=== PATIENT | female | born 1965 | race Caucasian/White ===

== ENCOUNTER 2023-06-16 06:26 | Outpatient (CLI) | payer BC, SELFPAY ==
[2023-06-16 06:43] VITALS: BP 106/66; PULSE 50; RESP 16; O2SAT 97
--- NOTE | 2023-06-16 07:53 | P.ORPRC_ITS ---
Procedure Note Date of procedure: 06/16/23 Procedure: PREPROCEDURE DIAGNOSIS: 1. Left medial elbow epicondylitis, recalcitrant to nonoperative management POSTPROCEDURE DIAGNOSIS: 1. Left medial elbow epicondylitis, recalcitrant to nonoperative management PROCEDURE: 1. Percutaneous tenotomy flexor pronator origin at the left medial distal humeral epicondyle using ultrasound guidance to cut and remove the patient?s pathologic tissue, tendon or fascia. SURGEON: Jose Krueger MD [employer]EN[employer] TEACHER: None ANESTHESIA: Local (1% lidocaine with epi) -12 mL utilized in total COMPLICATIONS: None INDICATIONS FOR PROCEDURE: The patient presents with left medial elbow pain that is failed nonoperative management including physical therapy, activity modification, oral NSAIDs, ice, multiple cortisone injections, etc. Given these findings, surgery was recommended for percutaneous tenotomy of the distal medial humeral epicondyle. DESCRIPTION OF PROCEDURE: A sterile sleeve was placed over the ultrasound transducer, the anatomy was identified and the diseased tissue was visualized/confirmed at the origin of the flexor pronator mass. The area was prepped with sterile ChloraPrep solution. Then, the area was injected with 1% lidocaine with epinephrine 12ml, using a 25 gauge needle. Once the skin wheal was placed in the involved tissue anesthetized, an #11 blade was used to incise through the skin wheal, and superficial fascia. This was all targeted towards the patient's described location of maximal tenderness (by anatomy, the pronator teres and FCR origins). To section the disease tendon, the Tenex surgical instrument was introduced through the incision, and advanced to the disease tendon which was discovered to be hypoechoic with the ultrasound. Once the tip of the instrument was confirmed to be within the pathologic tissue, the foot pedal was depressed and the tendon was incised along its length cutting and removing the disease tendon tissue. 1 min 18 sec of cutting time was utilized. Following the procedure, Steri-Strips were placed, a small gauze and Tegaderm were placed, and the patient was awoken from anesthesia and transferred to the recovery room in stable condition. PLAN: Gentle use of the operative extremity as tolerated. Refrain from excessive activities including yard projects or extensive shopping. Tylenol for pain as needed. Ice is encouraged. Follow up with me in 1-2 weeks for wound check.
== END 2023-06-16 07:25 | disposition home or self-care (01) ==
PROVIDERS: PCP Family Medicine; Visit Provider Orthopaedic Surgery Sports Medicine
DX: M77.02 Medial epicondylitis, left elbow (principal)
CPT/HCPCS: 24357; 76942

== ENCOUNTER 2023-08-04 08:14 | Outpatient (CLI) | payer BC, SELFPAY | END 2023-08-04 08:15 | disposition home or self-care (01) | LOC: NFLDREF 08-06 19:48 | PROVIDERS: PCP Family Medicine; Referring Provider Family Medicine; Visit Provider Family Medicine | DX: Z00.00 Encounter for general adult medical examination without abnormal findings (principal); R79.89 Other specified abnormal findings of blood chemistry; Z13.6 Encounter for screening for cardiovascular disorders | CPT/HCPCS: 80053; 80061 ==

== ENCOUNTER 2023-08-22 07:30 | Outpatient (RCR) | payer BC, SELFPAY | END 2023-12-20 23:59 | disposition home or self-care (01) | PROVIDERS: PCP Family Medicine; Visit Provider Family Medicine | DX: M79.644 Pain in right finger(s) (principal); M77.11 Lateral epicondylitis, right elbow; Z51.89 Encounter for other specified aftercare | CPT/HCPCS: 97033; 97035; 97110; 97140; 97166; X5282 ==

== ENCOUNTER 2023-10-10 07:47 | Outpatient (CLI) | payer BC, SELFPAY | END 2023-10-10 07:48 | disposition home or self-care (01) | LOC: NFLDREF 14:21 | PROVIDERS: PCP Family Medicine; Referring Provider Family Medicine; Visit Provider Family Medicine | DX: R79.89 Other specified abnormal findings of blood chemistry (principal); Z53.20 Procedure and treatment not carried out because of patient's decision for unspecified reasons | CPT/HCPCS: 80076; 86704 ==

== ENCOUNTER 2024-02-18 12:06 | Outpatient (CLI) | payer BC, SELFPAY ==
--- OUTSIDE RECORDS SUMMARY | 2024-02-18 12:11 | XMS_ITS | Referral Summary ---
Author Name Unknown Organization [facility] Address [address] [place] [address] Care Team Providers Care Correctional Therapy Director Name Role Phone Shakir Wyatt MD Primary Care Provider Allergies Active Allergy Reactions Criticality Noted Date Comments Sulfa Antibiotics Swelling 06/21/2011 Medications Medication Sig Dispensed Refills Start Date End Date Status ADVIL COLD & SINUS LIQUI-GELS 30-200 MG CAPSIndications:Enco unter for medication refill TAKE 2 CAPSULES BY MOUTH DAILY NEEDED 64 capsule 3 07/02/2016 Active multivitamin, therapeutic with minerals (MULTI-VITAMIN) TABS tablet Take 1 tablet by mouth daily 100 tablet 3 01/15/2017 Active scopolamine (TRANSDERM) 72 hr patchIndications:Sea sickness Apply 1 patch to hairless area behind one ear at least 4 hours before travel. Remove old patch and change every 3 days (72 hours). 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 yes Health Long-Term 06/08/2013 ADD (attention deficit disorder) 04/08/2012 Immunizations Name Administration Dates Next Due HEPA 02/12/2008,08/20/2006 HepB 08/20/2006,10/23/2005,08/21/2001 Influenza (IIV3) PF 08/25/2012 Influenza Vaccine, 6+MO IM ( QUADRIVALENT W/PRESERVATIVES) 09/09/2015 MMR 10/21/2001 TD,PF 7+ (Tenivac) 09/20/2003 TDAP Vaccine (Boostrix) 12/30/2014 Social History Tobacco Use Types Packs/Day Years Used Date Smoking Tobacco: Never Smokeless Tobacco: Never Tobacco Cessation:Counseling Given: No Alcohol Use Standard Drinks/Week Comments Yes 0 (1 standard drink = 0.6 oz pur e alcohol) 2-3 PHQ-2 Answer Date Recorded PHQ-2 Score 1 11/03/2018 Adolescent Education Answer Date Record ed Getting School Help Needed Not on file 08/03 Sex and Gender Information Value Date Recorded Sex Assigned at Female 01/27/2023 10:56 AM CDT Gender Identity Female 01/27/2023 10:56 AM CDT Sexual Orientation Straight 01/27/2023 10 :56 AM CDT Last Filed Vital Signs Vital Sign Reading Time Taken Comments Blood Pressure 102/70 01/15/2017 8:22 AM CDT Pulse 75 01/15/2017 8:22 AM CDT Temperature 36.7 ??C (98.1 ??F) 01/15/2017 8:22 AM CD T Respiratory Rate - - Oxygen Saturation 98% 01/15/2017 8:22 AM CDT Inhaled Oxygen Concentration - - Weight 76.2 kg (168 lb) 01/15/2017 8:22 AM CDT Height 163.2 cm (5' 4.25) 01/15/2017 8:22 AM CD T Body Mass Index 28.61 01/15/2017 8:22 AM CDT Plan of Treatment Upcoming Encounters Date Type Department Care Team (Late st Contact Info) Description 02/23/2024 9:45 AM CDT Ancillary Procedure [facility] [id number] [place] [phone] Procedures Procedure Name Priority Date/Time Associated Diagnosis Comments MA SCREENING BILATERAL W/ JOHNSON Routine 01/27/2023 11:36 AM CDT Encounter for screening mammogram for malignant neoplasm of breast COLONOSCOPY - [facility] SCAN Routine 01/23/2017 GLUCOSE SERUM ([facility]) Routine 01/15/2017 10:00 AM CDT Screening for diabetes mellitus LIPID PANEL ([facility]) Routine 01/15/2017 10:00 AM CDT Screening for hyperlipidemia from Last 3 Months or Most Recently Relevant to Health Maintenance Results * MA Screen Bilateral w/Johnson (01/27/2023 11:36 AM CDT) Anatomical Region Laterality Modality Breast Bilateral Mammography Impressions 01/28/2023 1:34 PM CDT IMPRESSION: ACR BI-RADS Category 1: Negative RECOMMENDED FOLLOW-UP: Annual routine screening mammogram The results and recommendations of this examination will be communicated to the patient. Pavel Hansen Narrative 01/28/2023 1:34 PM CDT BILATERAL FULL FIELD DIGITAL SCREENING MAMMOGRAM WITH TOMOSYNTHESIS Performed on: 01/27/23 Compared to: 10/10/2021, 10/07/2020, and 07/17/2019 Technique: ??This study was evaluated with the assistance of Computer-Aided Detection. ??Breast Tomosynthesis was used in interpretation. Findings: The breasts are heterogeneously dense, which may obscure small masses. ??There is no radiographic evidence of malignancy. Sydnie Cisse MD IMG MAMMOGRAPHY ORDERABLES * Colonoscopy - HIM Scan (01/23/2017) Shakir Ralph MD PROCEDURES * (ABNORMAL) Lipid Panel ([facility]) (01/15/2017 10:00 AM CDT) Cholesterol 221(H) 100 - 199 mg/dL [facility] 01 Triglycerides 89 0 - 149 mg/dL [facility] 01 HDL Cholesterol 98 >39 mg/dL [facility] 01 VLDL Cholesterol José 18 5 - 40 mg/dL [facility] 01 LDL Cholesterol Calculated 105(H) 0 - 99 mg/dL [facility] 01 LDL/HDL Ratio 1.1 0.0 - 3.2 ratio units [facility] 01 Comment: ?LDL/HDL Ratio ?Men ??Women ?1/2 Avg.Risk ??1.0 ?1.5 ?Avg.Risk ??3.6 ?3.2 ? 2X Avg.Risk ??6.2 ?5.0 ? 3X Avg.Risk ??8.0 ?6.1 Blood specimen (specimen) 01/15/2017 10:00 AM CDT 01/16/2017 Narrative [facility] - 01/16/2017 9:11 AM CDT Performed at: ??01 - [address] ??[id number] Patient Accounting Representative: Anuj Dale MD, Phone: ??[phone] Shakir Ralph MD LAB - [facility] Performing Organization Address City/State/[facility] [[email or web address]] [place] Phone Number [facility] 01 * Glucose Serum ([facility]) (01/15/2017 10:00 AM CDT) Glucose 82 65 - 99 mg/dL [facility] 01 Blood specimen (specimen) 01/15/2017 10:00 AM CDT 01/16/2017 Narrative [facility] - 01/16/2017 9:11 AM CDT Performed at: ??01 - [facility] [id number] [place], [place] ??[id number] Patient Accounting Representative: Anuj Dale MD, Phone: ??[phone] Shakir Ralph MD LAB - [facility] 01 from Last 3 Months or Most Recently Relevant to Health Maintenance Care Teams Correctional Therapy Director Relationship Specialty Start Date End Date Shakir Wyatt MD [facility] [address] [address] PCP - General 02/16/24
--- OUTSIDE RECORDS SUMMARY | 2024-02-18 12:11 | XMS_ITS | Encounter Summary ---
Author Name Unknown Organization [facility] Address [address] [place] [address] Care Team Providers Care Superintendent Operating Name Role Phone Shakir Ralph MD Primary Care Provider UnaShakir Hernandez MD Unavailable Unavailable System, Provider Not In Primary Care Provider Un available No Ref-Primary, Physician Primary Care Provider Shakir Wyatt MD Primary Care Provider Reason for Visit * Reason Comments Medication Refill Encounter Details Date Type Department Care Team (Late st Contact Info) Description 02/07/2015 Refill [facility] [address] [place] [address] Shakir Ralph MD INACTIVE SINCE 09/25/2019 Medication Refill Social History Tobacco Use Types Packs/Day Years Used Date Smoking Tobacco: Never Smokeless Tobacco: Never Alcohol Use Standard Drinks/Week Comments Yes 0 (1 standard drink = 0.6 oz pur e alcohol) none in training Sex and Gender Information Value Date Recorded Sex Assigned at Female 01/27/2023 10:56 AM CDT Gender Identity Female 01/27/2023 10:56 AM CDT Sexual Orientation Straight 01/27/2023 10 :56 AM CDT documented as of this encounter Plan of Treatment Upcoming Encounters Date Type Department Care Team (Late st Contact Info) Description 02/23/2024 9:45 AM CDT Ancillary Procedure [address] [phone] documented as of this encounter Visit Diagnoses Diagnosis Refill clinic medication management patient- Primary documented in this encounter Care Teams Superintendent Operating Relationship Specialty Start Date End Date Shakir Ralph MD PCP - General Family Practice 06/20/11 10/31/19 System, Provider Not In PCP - General Clinic 11/01/19 11/01/19 No Ref-Primary, Physician PCP - General 10/10/21 02/15/24 Shakir Wyatt MD [facility] [address] [address] PCP - General 02/16/24 Shakir Ralph MD INACTIVE [facility]IN[facility] 09/25/2019 Assigned PCP 03/05/15 01/22/20 documented as of this encounter
--- OUTSIDE RECORDS SUMMARY | 2024-02-18 12:11 | XMS_ITS | Encounter Summary ---
Author Name Unknown Organization [facility] Address [address] [place] [address] Care Team Providers Care Communication Spec Name Role Phone Shakir Ralph MD Primary Care Provider UnaShakir Hernandez MD Unavailable Unavailable System, Provider Not In Primary Care Provider Un available No Ref-Primary, Physician Primary Care Provider Shakir Wyatt MD Primary Care Provider [phone] Encounter Details Date Type Department Care Team (Late Contact Info) Description 01/18/2016 [facility] Medical Advice [facility] [address] [place] [address] Anni Rubio Social History Tobacco Use Types Packs/Day Years [...] Encounters Date Type Department Care Team (Late Contact Info) Description 02/23/2024 9:45 AM CDT Ancillary Procedure [facility] [address] [place] [phone] documented as of this encounter Visit Diagnoses Not on filedocumented in this encounter Care Teams Communication Spec Relationship Specialty Start Date End Date Shakir Ralph MD PCP - General Family Practice 06/20/11 10/31/19 System, Provider Not In PCP - General Clinic 11/01/19 11/01/19 No Ref-Primary, Physician PCP - General 10/10/21 02/15/24 Shakir Wyatt MD [facility] [address] [place] [address] PCP - General 02/16/24 Shakir Ralph MD INACTIVE [facility]INCE 09/25/2019 Assigned PCP 03/05/15 01/22/20 documented as of this encounter
--- OUTSIDE RECORDS SUMMARY | 2024-02-18 12:11 | XMS_ITS | Encounter Summary ---
Author Name Unknown Organization [facility] Address [address] [place] [address] Care Team Providers Care Hybrid Tester Name Role Phone Shakir Ralph MD Primary Care Provider UnaShakir Hernandez MD Unavailable Unavailable System, Provider Not In Primary Care Provider Un available No Ref-Primary, Physician Primary Care Provider Shakir Wyatt MD Primary Care Provider Encounter Details Date Type Department Care Team (Late Contact Info) Description 09/04/2015 [facility] Medical Advice [facility] [address] [place] [address] Anni Rubio Social History Tobacco [...] Description 02/23/2024 9:45 AM CDT Ancillary Procedure [facility] [address] [place] [phone] documented as of this encounter Visit Diagnoses Not on filedocumented in this encounter Care Teams Hybrid Tester Relationship Specialty Start Date End Date Shakir Ralph MD PCP - General Family Practice 06/20/11 10/31/19 System, Provider Not In PCP - General Clinic 11/01/19 11/01/19 No Ref-Primary, Physician PCP - General 10/10/21 02/15/24 Shakir Wyatt MD [facility] [address] [place] [address] PCP - General 02/16/24 Shakir Ralph MD INACTIVE [facility]INCE 09/25/2019 Assigned PCP 03/05/15 01/22/20 documented as of this encounter
--- OUTSIDE RECORDS SUMMARY | 2024-02-18 12:11 | XMS_ITS | Encounter Summary ---
Author Name Unknown Organization [facility] Address [address] [place] [address] Care Team Providers Care Wage Adjuster Name Role Phone Shakir Ralph MD Primary Care Provider Shakir Luna MD Unavailable Unavailable System, Provider Not In Primary Care Provider Un available No Ref-Primary, Physician Primary Care Provider Shakir Wyatt MD Primary Care Provider [phone] Reason for Visit * Reason Comments Medication Refill Last OV 10/24/15 Encounter Details Date Type Department Care Team (Late st Contact Info) Description 07/02/[address] [phone] Shakir Ralph MD INACTIVE SINCE 09/25/2019 Medication Refill (Last OV 10/24/15) Social History Tobacco Use Types Packs/Day Years [...] AM CDT documented as of this encounter Miscellaneous Notes * Telephone Encounter - Kavitha Zayas - 07/02/2016 8:45 AM CDT Pending Prescriptions: Disp Refills ADVIL COLD & SINUS LIQUI-GELS 30-200 MG C*64 cap*0 Sig: TAKE 2 CAPSULES BY MOUTH DAILY NEEDED Last OV 10/24/15 CBC 10/24/15 BMP None Lipid 03/02/14 documented in this encounter Plan of Treatment Upcoming Encounters Date Type Department Care Team (Late st Contact Info) Description 02/23/2024 9:45 AM CDT Ancillary Procedure [address] [phone] documented as of this encounter Visit Diagnoses Diagnosis Encounter for medication refill- Primary Issue of repeat prescriptions documented in this encounter Care Teams Wage Adjuster Relationship Specialty Start Date End Date Shakir Ralph MD PCP - General Family Practice 06/20/11 10/31/19 System, Provider Not In PCP - General Clinic 11/01/19 11/01/19 No Ref-Primary, Physician PCP - General 10/10/21 02/15/24 Shakir Wyatt MD [facility] [address] [place] [address] PCP - General 02/16/24 Shakir Ralph MD INACTIVE [facility]INCE 09/25/2019 Assigned PCP 03/05/15 01/22/20 documented as of this encounter
--- OUTSIDE RECORDS SUMMARY | 2024-02-18 12:11 | XMS_ITS | Encounter Summary ---
Author Name Unknown Organization [facility] Address [address] [place] [address] Care Team Providers Care Mold Maker Helper Name Role Phone Shakir Ralph MD Primary Care Provider UnaShakir Hernandez MD Unavailable Unavailable System, Provider Not In Primary Care Provider Un available No Ref-Primary, Physician Primary Care Provider Shakir Wyatt MD Primary Care Provider [phone] Encounter Details Date Type Department Care Team (Late Contact Info) Description 12/24/2016 [facility] Medical Advice [facility] [address] [place] [address] Anni Rubio Social History Tobacco [...] Description 02/23/2024 9:45 AM CDT Ancillary Procedure [facility] [address] [place] [phone] documented as of this encounter Visit Diagnoses Not on filedocumented in this encounter Care Teams Mold Maker Helper Relationship Specialty Start Date End Date Shakir Ralph MD PCP - General Family Practice 06/20/11 10/31/19 System, Provider Not In PCP - General Clinic 11/01/19 11/01/19 No Ref-Primary, Physician PCP - General 10/10/21 02/15/24 Shakir Wyatt MD [facility] [address] [place] [address] PCP - General 02/16/24 Shakir Ralph MD INACTIVE SINCE 09/25/2019 Assigned PCP 03/05/15 01/22/20 documented as of this encounter
--- OUTSIDE RECORDS SUMMARY | 2024-02-18 12:11 | XMS_ITS | Encounter Summary ---
Author Name Unknown Organization [facility] Address [address] [place] [address] Care Team Providers Care Claims Correspondence Clerk Name Role Phone Shakir Ralph MD Primary Care Provider Unava Shakir Mar MD Unavailable Unavailable System, Provider Not In Primary Care Provider Un available No Ref-Primary, Physician Primary Care Provider Shakir Wyatt MD Primary Care Provider [phone] Encounter Details Date Type Department Care Team (Late Contact Info) Description 10/30/2015 [facility] [address] [place] [address] Shakir Ralph MD INACTIVE SINCE 09/25/2019 Social History Tobacco Use Types Packs/Day Years [...] Description 02/23/2024 9:45 AM CDT Ancillary Procedure [facility] [address] [place] [phone] documented as of this encounter Visit Diagnoses Not on filedocumented in this encounter Care Teams Claims Correspondence Clerk Relationship Specialty Start Date End Date Shakir Ralph MD PCP - General Family Practice 06/20/11 10/31/19 System, Provider Not In PCP - General Clinic 11/01/19 11/01/19 No Ref-Primary, Physician PCP - General 10/10/21 02/15/24 Shakir Wyatt MD [facility] [address] [address] PCP - General 02/16/24 Shakir Ralph MD INACTIVE SINCE 09/25/2019 Assigned PCP 03/05/15 01/22/20 documented as of this encounter
--- OUTSIDE RECORDS SUMMARY | 2024-02-18 12:11 | XMS_ITS | Encounter Summary ---
Author Name Unknown Organization [facility] Address [address] [place] [address] Care Team Providers Care Side Seam Envelope Machine Operator Name Role Phone Shakir Ralph MD Primary Care Provider UnaShakir Hernandez MD Unavailable Unavailable System, Provider Not In Primary Care Provider Un available No Ref-Primary, Physician Primary Care Provider Shakir Wyatt MD Primary Care Provider Reason for Visit * Reason Comments Medication Refill Encounter Details Date Type Department Care Team (Late st Contact Info) Description 12/02/2014 Refill [facility] [address] [place] [address] Shakir Ralph MD INACTIVE SINCE [...] Description 02/23/2024 9:45 AM CDT Ancillary Procedure [address] [phone] documented as of this encounter Visit Diagnoses Diagnosis Refill clinic medication management patient- Primary documented in this encounter Care Teams Side Seam Envelope Machine Operator Relationship Specialty Start Date End Date Shakir Ralph MD PCP - General Family Practice 06/20/11 10/31/19 System, Provider Not In PCP - General Clinic 11/01/19 11/01/19 No Ref-Primary, Physician PCP - General 10/10/21 02/15/24 Shakir Wyatt MD [facility] [address], [place] [address] PCP - General 02/16/24 Shakir Ralph MD INACTIVE SINCE 09/25/2019 Assigned PCP 03/05/15 01/22/20 documented as of this encounter
--- OUTSIDE RECORDS SUMMARY | 2024-02-18 12:11 | XMS_ITS | Encounter Summary ---
Author Name Unknown Organization [facility] Address [address] [place] [address] Care Team Providers Care Graphics Specialist Name Role Phone Shakir Ralph MD Primary Care Provider UnaShakir Hernandez MD Unavailable Unavailable System, Provider Not In Primary Care Provider Un available No Ref-Primary, Physician Primary Care Provider Shakir Wyatt MD Primary Care Provider [phone] Reason for Visit * Reason Comments Patient/info Update update med list Encounter Details Date Type Department Care Team (Late st Contact Info) Description 03/18/2016 [facility]ice [address] [phone] Shakir Ralph MD INACTIVE SINCE 09/25/2019 Patient/info Update (update med list) Social History Tobacco Use Types Packs/Day Years [...] encounter Miscellaneous Notes * Telephone Encounter - Marian Whiteside RN - 03/18/2016 10:02 AM CDT Updated med list per patient's instruction and sent her message that this was done. Marian Stevo RN * Telephone Encounter - Marian Whiteside RN - 03/18/2016 10:00 AM CDTFrom: Wendy Kendrick To: Shakir Ralph MD Sent: 03/18/2016 9:36 AM CDT Subject: Medication List Update I have completed my half-marathon and related training and would like to confirm that the followingmodifications to my medication list are updated: Xoponex inhaler - NO LONGER NEEDED Dulera inhaler - NO LONGER NEEDED PREMARIN 0.9 MB - REPLACED WITH Estradiol 1mg tablet ADDEROL - HAVEN'T USED IN 6 MONTHS +, PLEASE REMOVE ADVIL Cold & Sinus - NO LONGER NEED PRESCRIPTION GIVEN TRAINING IS DONE So, the only prescription I am actively taking is the Estradiol 1 mg. I would appreciate if my chart could be updated as I will have applied for life insurance (pre- 51th birthday) and I want to be 100% sure my record agrees with the information I have provided. Any questions, please let me know. Thank you, Wanda documented in this encounter Plan of Treatment Upcoming Encounters Date Type Department Care Team (Late st Contact Info) Description 02/23/2024 9:45 AM CDT Ancillary Procedure [address] [phone] documented as of this encounter Visit Diagnoses Not on filedocumented in this encounter Care Teams Graphics Specialist Relationship Specialty Start Date End Date Shakir Ralph MD PCP - General Family Practice 06/20/11 10/31/19 System, Provider Not In PCP - General Clinic 11/01/19 11/01/19 No Ref-Primary, Physician PCP - General 10/10/21 02/15/24 Shakir Wyatt MD [facility] [address]. [place] [address] PCP - General 02/16/24 Shakir Ralph MD INACTIVE SINCE 09/25/2019 Assigned PCP 03/05/15 01/22/20 documented as of this encounter
--- OUTSIDE RECORDS SUMMARY | 2024-02-18 12:11 | XMS_ITS | Encounter Summary ---
Author Name Unknown Organization [place] Address [address] [place] [address] Care Team Providers Care General Internist Name Role Phone Shakir Ralph MD Primary Care Provider UnaShakir Hernandez MD Unavailable Unavailable System, Provider Not In Primary Care Provider Un available No Ref-Primary, Physician Primary Care Provider Shakir Wyatt MD Primary Care Provider Reason for Visit * Reason Comments Medication Refill Encounter Details Date Type Department Care Team (Late st Contact Info) Description 04/26/2018 Refill [facility] [address] [place] [address] Shakir Ralph MD INACTIVE SINCE 09/25/2019 Medication Refill Social History Tobacco Use Types Packs/Day Years Used Date Smoking Tobacco: Never Smokeless Tobacco: Never Alcohol Use Standard Drinks/Week Comments Yes 0 (1 standard drink = 0.6 oz pur e alcohol) 2-3 Sex and Gender Information Value Date Recorded Sex Assigned at Female 01/27/2023 10:56 AM CDT Gender Identity Female 01/27/2023 10:56 AM CDT Sexual Orientation Straight 01/27/2023 10 :56 AM CDT documented as of this encounter Plan of Treatment Upcoming Encounters Date Type Department Care Team (Late st Contact Info) Description 02/23/2024 9:45 AM CDT Ancillary Procedure [address] [phone] documented as of this encounter Visit Diagnoses Diagnosis Encounter for medication refill Issue of repeat prescriptions documented in this encounter Care Teams General Internist Relationship Specialty Start Date End Date Shakir Ralph MD PCP - General Family Practice 06/20/11 10/31/19 System, Provider Not In PCP - General Clinic 11/01/19 11/01/19 No Ref-Primary, Physician PCP - General 10/10/21 02/15/24 Shakir Wyatt MD [facility] [address] [place] [address] PCP - General 02/16/24 Shakir Ralph MD INACTIVE SINCE 09/25/2019 Assigned PCP 03/05/15 01/22/20 documented as of this encounter
--- OUTSIDE RECORDS SUMMARY | 2024-02-18 12:11 | XMS_ITS | Encounter Summary ---
Author Name Unknown Organization [facility] Address [address] [place] [address] Care Team Providers Care Appliance Sales Associate Name Role Phone Shakir Ralph MD Primary Care Provider Shakir Luna MD Unavailable Unavailable System, Provider Not In Primary Care Provider Un available No Ref-Primary, Physician Primary Care Provider Shakir Wyatt MD Primary Care Provider [phone] Reason for Visit * Reason Comments Medication Refill Last OV 10/24/15 Encounter Details Date Type Department Care Team (Late st Contact Info) Description 12/31/[address] [address] Shakir Ralph MD INACTIVE SINCE [...] * Telephone Encounter - Kavitha Zayas - 01/01/2017 8:48 AM CST Pending Prescriptions: Disp Refills estradiol (ESTRACE) 1 MG tablet [Pharmacy *90 tab*0 Sig: TAKE 1 TABLET(1 MG) BY MOUTH DAILY Last OV 10/24/15 CMP 03/02/14 R SPACE ALLOCATOR documented in this encounter Plan of Treatment Upcoming Encounters Date Type Department Care Team (Late st Contact Info) Description 02/23/2024 9:45 AM CDT Ancillary Procedure [address] [phone] documented as of this encounter Visit Diagnoses Diagnosis Encounter for medication refill- Primary Issue of repeat prescriptions documented in this encounter Care Teams Appliance Sales Associate Relationship Specialty Start Date End Date Shakir Ralph MD PCP - General Family Practice 06/20/11 10/31/19 System, Provider Not In PCP - General Clinic 11/01/19 11/01/19 No Ref-Primary, Physician PCP - General 10/10/21 02/15/24 Shakir Wyatt MD [facility] [address] [place] [address] PCP - General 02/16/24 Shakir Ralph MD INACTIVE SINCE 09/25/2019 Assigned PCP 03/05/15 01/22/20 documented as of this encounter
--- OUTSIDE RECORDS SUMMARY | 2024-02-18 12:11 | XMS_ITS | Encounter Summary ---
Author Name Unknown Organization [facility] Address [address] [place] [address] Care Team Providers Care Toxicology Teacher Name Role Phone Shakir Ralph MD Primary Care Provider UnaShakir Hernandez MD Unavailable Unavailable System, Provider Not In Primary Care Provider Un available No Ref-Primary, Physician Primary Care Provider Shakir Wyatt MD Primary Care Provider [phone] Reason for Visit * Reason Comments Medication Refill estrace 1 mg last OV - & labs 10/24/15 - due with no appt scheduled Encounter Details Date Type Department Care Team (Late st Contact Info) Description 12/19/[address] [address] Shakir Ralph MD INACTIVE SINCE 09/25/2019 Medication Refill (estrace 1 mg last OV - & labs 10/24/15 - due with no appt scheduled) Social History Tobacco Use Types Packs/Day Years [...] encounter Miscellaneous Notes * Telephone Encounter - Becky Rojas - 12/19/2016 12:36 PM CST estrace 1 mg last OV - & labs 10/24/15 - due with no appt scheduled Becky Rojas MA December 19, 2016 12:36 PM Last Basic Metabolic Panel: Lab Results Component Value Date NA 139 03/02/2014 Lab Results Component Value Date POTASSIUM 4.0 03/02/2014 Lab Results Component Value Date CHLORIDE 100 03/02/2014 Lab Results Component Value Date KARLIE 10.1 03/02/2014 No results found for: CO2 Lab Results Component Value Date BUN 15 03/02/2014 BUN 20 03/02/2014 Lab Results Component Value Date CR 0.75 03/02/2014 Lab Results Component Value Date GLC 78 03/02/2014 ICULUM FACILITATOR documented in this encounter Plan of Treatment Upcoming Encounters Date Type Department Care Team (Late st Contact Info) Description 02/23/2024 9:45 AM CDT Ancillary Procedure [address] [phone] documented as of this encounter Visit Diagnoses Diagnosis Encounter for medication refill Issue of repeat prescriptions documented in this encounter Care Teams Toxicology Teacher Relationship Specialty Start Date End Date Shakir Ralph MD PCP - General Family Practice 06/20/11 10/31/19 System, Provider Not In PCP - General Clinic 11/01/19 11/01/19 No Ref-Primary, Physician PCP - General 10/10/21 02/15/24 Shakir Wyatt MD [facility] [address] [address] PCP - General 02/16/24 Shakir Ralph MD INACTIVE SINCE 09/25/2019 Assigned PCP 03/05/15 01/22/20 documented as of this encounter
--- OUTSIDE RECORDS SUMMARY | 2024-02-18 12:11 | XMS_ITS | Encounter Summary ---
Author Name Unknown Organization [facility] Address [address] [place] [address] Care Team Providers Care Yardage Control Operator Forming Name Role Phone Shakir Ralph MD Primary Care Provider Shakir Luna MD Unavailable Unavailable System, Provider Not In Primary Care Provider Un available No Ref-Primary, Physician Primary Care Provider Shakir Wyatt MD Primary Care Provider [phone] Reason for Visit * Reason Comments Medication Refill Last OV 10/24/15 Encounter Details Date Type Department Care Team (Late st Contact Info) Description 05/21/[address] [address] Shakir Ralph MD INACTIVE SINCE [...] * Telephone Encounter - Kavitha Zayas - 05/21/2016 9:08 AM CDT Pending Prescriptions: Disp Refills estradiol (ESTRACE) 1 MG tablet [Pharmacy *90 tab*0 Sig: TAKE 1 TABLET(1 MG) BY MOUTH DAILY Last OV 10/24/15 CBC 10/24/15 BMP None Lipid 03/02/14 documented in this encounter Plan of Treatment Upcoming Encounters Date Type Department Care Team (Late st Contact Info) Description 02/23/2024 9:45 AM CDT Ancillary Procedure [address] [phone] documented as of this encounter Visit Diagnoses Diagnosis Encounter for medication refill- Primary Issue of repeat prescriptions documented in this encounter Care Teams Yardage Control Operator Forming Relationship Specialty Start Date End Date Shakir Ralph MD PCP - General Family Practice 06/20/11 10/31/19 System, Provider Not In PCP - General Clinic 11/01/19 11/01/19 No Ref-Primary, Physician PCP - General 10/10/21 02/15/24 Shakir Wyatt MD [facility] [address] [place] [address] PCP - General 02/16/24 Shakir Ralph MD INACTIVE SINCE 09/25/2019 Assigned PCP 03/05/15 01/22/20 documented as of this encounter
--- OUTSIDE RECORDS SUMMARY | 2024-02-18 12:11 | XMS_ITS | Clinical Summary ---
Author Name Unknown Organization [facility] Address [address] [place] [address] Care Team Providers Care Engineering Drawings Checker Name Role Phone Shakir Wyatt MD Primary [...] the replacement in the background? yes Health Fdc 06/08/2013 ADD (attention deficit disorder) 04/08/2012 Immunizations Name Administration Dates Next Due HEPA 02/12/2008,08/20/2006 HepB 08/20/2006,10/23/2005,08/21/2001 Influenza (IIV3) PF 08/25/2012 Influenza Vaccine, 6+MO IM ( QUADRIVALENT W/PRESERVATIVES) 09/09/2015 MMR 10/21/2001 TD,PF 7+ (Tenivac) 09/20/2003 TDAP Vaccine (Boostrix) 12/30/2014 Family History Medical History Relation Comments Cardiovascular Mother Breast Cancer Sister Relation Status Comments Father (Age 65) endocarditis Mother Alive Sister Social History Tobacco Use Types Packs/Day Years [...] Description 02/23/2024 9:45 AM CDT Ancillary Procedure [facility] [address] [place] [address] Health Maintenance Due Date Last Done Comments ADVANCE CARE PLANNING 1966 ANNUAL REVIEW OF HM ORDERS 1966 CT COLONOGRAPHY 1966 FIT 1966 FLEX SIG 1966 sDNA (Cologuard) 1966 HIV SCREENING 1981 HEPATITIS C SCREENING 1984 YEARLY PREVENTIVE VISIT 01/15/2018 01/16/20 17, 03/02/2014, 08/24/2012 GLUCOSE 01/16/2020 01/15/2017, 050 04/2014, 06/08/2013, Additional history exists LIPID 01/15/2022 01/15/2017, 05/0 04/2014, 06/08/2013 PHQ-2 (once per calendar year) 2023 01/15/2017 MAMMO SCREENING 01/27/2025 01/27/2023, 09/26, 10/07/2020, Additional history exists COLONOSCOPY 01/23/2027 01/23/2017 COLORECTAL CANCER SCREENING 01/23/2027 DTAP/TDAP/TD IMMUNIZATION (3 - Td or Tdap) 04/02/2031 04/02/2021, 12/30/2014, 09/20/2003, Additional history exists HEPATITIS B IMMUNIZATION Completed 006, 08/20/2006, 08/20/2006, Additional history exists Pneumococcal Vaccine: Pediatrics (0 to 5 Years) and At-Risk Patients (6 to 64 Years) Aged Out 08/21/2018 No longer eligible based on patient's age to complete this topic ZOSTER IMMUNIZATION Completed 01/10/2020, COVID-19 Vaccine Completed 07/28/2023, , 03/14/2022, Additional history exists INFLUENZA VACCINE Completed 07/28/2023, , 07/16/2022, Additional history exists HPV IMMUNIZATION Aged Out No longer e ligible based on patient's age to complete this topic IPV IMMUNIZATION Aged Out No longer e ligible based on patient's age to complete this topic MENINGITIS IMMUNIZATION Aged Out No l onger eligible based on patient's age to complete this topic PAP Discontinued RSV MONOCLONAL ANTIBODY Aged Out No l onger eligible based on patient's age to complete this topic Procedures Procedure Name Priority Date/Time Associated Diagnosis [...] 9:11 AM CDT Performed at: ??01 - [address] ??[id number] Detail Supervisor: Anuj Dale MD, Phone: ??[phone] Shakir Ralph MD LAB - [facility] Performing Organization Address City/State/[facility] Co de Phone Number [facility] 01 * Glucose Serum ([facility]) (01/15/2017 10:00 AM CDT) Glucose 82 65 - 99 mg/dL [facility] 01 Blood specimen (specimen) 01/15/2017 10:00 AM CDT 01/16/2017 Narrative [facility] - 01/16/2017 9:11 AM CDT Performed at: ??[facility] - [facility] [address] [place] [address] ??[id number] Detail Supervisor: Anuj Dale MD, Phone: ??[phone] Shakir Ralph MD [facility] 01 from Last 3 Months or Most Recently Relevant to Health Maintenance Care Teams Engineering Drawings Checker Relationship Specialty Start Date End Date Shakir Wyatt MD [facility] [address] [address] PCP - General 02/16/24
--- OUTSIDE RECORDS SUMMARY | 2024-02-18 12:12 | XMS_ITS | Encounter Summary ---
Author Name Unknown Organization [facility] Address [address] [place] [address] Care Team Providers Care Carton Lettering Machine Operator Name Role Phone Shakir Ralph MD Primary Care Provider UnaShakir Hernandez MD Unavailable Unavailable System, Provider Not In Primary Care Provider Un available No Ref-Primary, Physician Primary Care Provider Shakir Wyatt MD Primary Care Provider Encounter Details Date Type Department Care Team (Late Contact Info) Description 07/02/2013 MyC Medical Advice [facility] [address] [place] [address] Anni Rubio Social History Tobacco [...] Description 02/23/2024 9:45 AM CDT Ancillary Procedure [facility] [address] [place] [address] documented as of this encounter Visit Diagnoses Not on filedocumented in this encounter Care Teams Carton Lettering Machine Operator Relationship Specialty Start Date End Date Shakir Ralph MD PCP - General Family Practice 06/20/11 10/31/19 System, Provider Not In PCP - General Clinic 11/01/19 11/01/19 No Ref-Primary, Physician PCP - General 10/10/21 02/15/24 Shakir Wyatt MD [facility] [address] [place] [address] PCP - General 02/16/24 Shakir Ralph MD INACTIVE SINCE 09/25/2019 Assigned PCP 03/05/15 01/22/20 documented as of this encounter
--- OUTSIDE RECORDS SUMMARY | 2024-02-18 12:12 | XMS_ITS | Encounter Summary ---
Author Name Unknown Organization [place] Address [address] [place] [address] Care Team Providers Care Catheter Builder Name Role Phone Shakir Ralph MD Primary Care Provider UnaShakir Hernandez MD Unavailable Unavailable System, Provider Not In Primary Care Provider Un available No Ref-Primary, Physician Primary Care Provider Shakir Wyatt MD Primary Care Provider Encounter Details Date Type Department Care Team (Late Contact Info) Description 06/09/2013 MyC Medical Advice [facility] [address] [place] [address] Anni Rubio Social History Tobacco [...] Description 02/23/2024 9:45 AM CDT Ancillary Procedure [facility] [address] [place] [address] documented as of this encounter Visit Diagnoses Not on filedocumented in this encounter Care Teams Catheter Builder Relationship Specialty Start Date End Date Shakir Ralph MD PCP - General Family Practice 06/20/11 10/31/19 System, Provider Not In PCP - General Clinic 11/01/19 11/01/19 No Ref-Primary, Physician PCP - General 10/10/21 02/15/24 Shakir Wyatt MD [facility] [address] [place] [address] PCP - General 02/16/24 Shakir Ralph MD INACTIVE SINCE 09/25/2019 Assigned PCP 03/05/15 01/22/20 documented as of this encounter
--- OUTSIDE RECORDS SUMMARY | 2024-02-18 12:12 | XMS_ITS | Encounter Summary ---
Author Name Unknown Organization [facility] Address [address] [place] [address] Care Team Providers Care Paralegal Assistant Name Role Phone Shakir Ralph MD Primary Care Provider UnaShakir Hernandez MD Unavailable Unavailable System, Provider Not In Primary Care Provider Un available No Ref-Primary, Physician Primary Care Provider Shakir Wyatt MD Primary Care Provider Encounter Details Date Type Department Care Team (Late Contact Info) Description 05/17/2014 MyC Medical Advice [facility] [address] [place] [address] Anni Rubio Social History Tobacco [...] 02/23/2024 9:45 AM CDT Ancillary Procedure [facility] [id number] [place] [phone] documented as of this encounter Visit Diagnoses Not on filedocumented in this encounter Care Teams Paralegal Assistant Relationship Specialty Start Date End Date Shakir Ralph MD PCP - General Family Practice 06/20/11 10/31/19 System, Provider Not In PCP - General Clinic 11/01/19 11/01/19 No Ref-Primary, Physician PCP - General 10/10/21 02/15/24 Shakir Wyatt MD [facility] [address] [place] [address] PCP - General 02/16/24 Shakir Ralph MD INACTIVE SINCE 09/25/2019 Assigned PCP 03/05/15 01/22/20 documented as of this encounter
--- OUTSIDE RECORDS SUMMARY | 2024-02-18 12:12 | XMS_ITS | Encounter Summary ---
Author Name Unknown Organization [facility] Address [address] [place] [address] Care Team Providers Care High School Mathematics Teacher Name Role Phone Shakir Ralph MD Primary Care Provider UnaShakir Hernandez MD Unavailable Unavailable System, Provider Not In Primary Care Provider Un available No Ref-Primary, Physician Primary Care Provider Shakir Wyatt MD Primary Care Provider [phone] Encounter Details Date Type Department Care Team (Late Contact Info) Description 11/16/2014 [facility] Medical Advice [facility] [address] [place] [address] Anni Rubio Social History Tobacco [...] AM CDT Ancillary Procedure [facility] [address] [place] [phone] documented as of this encounter Visit Diagnoses Not on filedocumented in this encounter Care Teams High School Mathematics Teacher Relationship Specialty Start Date End Date Shakir Ralph MD PCP - General Family Practice 06/20/11 10/31/19 System, Provider Not In PCP - General Clinic 11/01/19 11/01/19 No Ref-Primary, Physician PCP - General 10/10/21 02/15/24 Shakir Wyatt MD [facility] [address] [place] [address] PCP - General 02/16/24 Shakir Ralph MD INACTIVE SINCE 09/25/2019 Assigned PCP 03/05/15 01/22/20 documented as of this encounter
--- OUTSIDE RECORDS SUMMARY | 2024-02-18 12:12 | XMS_ITS | Encounter Summary ---
Author Name Unknown Organization [facility] Address [address] [place] [address] Care Team Providers Care Storage Consultant Name Role Phone Shakir Ralph MD Primary Care Provider UnaShakir Hernandez MD Unavailable Unavailable System, Provider Not In Primary Care Provider Un available No Ref-Primary, Physician Primary Care Provider Shakir Wyatt MD Primary Care Provider Reason for Visit * Reason Comments Medication Refill Encounter Details Date Type Department Care Team (Late st Contact Info) Description 02/06/2014 Refill [facility] [address] [place] [address] Shakir Ralph MD INACTIVE SINCE [...] Description 02/23/2024 9:45 AM CDT Ancillary Procedure [address] [phone] documented as of this encounter Visit Diagnoses Diagnosis Nasal congestion- Primary Other diseases of nasal cavity and sinuses documented in this encounter Care Teams Storage Consultant Relationship Specialty Start Date End Date Shakir Ralph MD PCP - General Family Practice 06/20/11 10/31/19 System, Provider Not In PCP - General Clinic 11/01/19 11/01/19 No Ref-Primary, Physician PCP - General 10/10/21 02/15/24 Shakir Wyatt MD [facility] [address] [address] PCP - General 02/16/24 Shakir Ralph MD INACTIVE SINCE 09/25/2019 Assigned PCP 03/05/15 01/22/20 documented as of this encounter
--- OUTSIDE RECORDS SUMMARY | 2024-02-18 12:12 | XMS_ITS | Encounter Summary ---
Author Name Unknown Organization [place] Address [address] [place] [address] Care Team Providers Care Steel Inspector Name Role Phone Shakir Ralph MD Primary Care Provider UnaShakir Hernandez MD Unavailable Unavailable System, Provider Not In Primary Care Provider Un available No Ref-Primary, Physician Primary Care Provider Shakir Wyatt MD Primary Care Provider Reason for Visit * Reason Comments Medication Refill Encounter Details Date Type Department Care Team (Late st Contact Info) Description 09/25/2014 Refill [facility] [address] [place] [address] Shakir Ralph MD INACTIVE SINCE [...] Description 02/23/2024 9:45 AM CDT Ancillary Procedure [address] [phone] documented as of this encounter Visit Diagnoses Diagnosis Refill clinic medication management patient- Primary documented in this encounter Care Teams Steel Inspector Relationship Specialty Start Date End Date Shakir Ralph MD PCP - General Family Practice 06/20/11 10/31/19 System, Provider Not In PCP - General Clinic 11/01/19 11/01/19 No Ref-Primary, Physician PCP - General 10/10/21 02/15/24 Shakir Wyatt MD [facility] [address] [address] PCP - General 02/16/24 Shakir Ralph MD INACTIVE SINCE 09/25/2019 Assigned PCP 03/05/15 01/22/20 documented as of this encounter
--- OUTSIDE RECORDS SUMMARY | 2024-02-18 12:12 | XMS_ITS | Encounter Summary ---
Author Name Unknown Organization [place] Address [address] [place] [address] Care Team Providers Care Paint Coating Machine Operator Name Role Phone Shakir Ralph MD Primary Care Provider UnaShakir Hernandez MD Unavailable Unavailable System, Provider Not In Primary Care Provider Un available No Ref-Primary, Physician Primary Care Provider Shakir Wyatt MD Primary Care Provider Reason for Visit * Reason Comments Medication Refill Encounter Details Date Type Department Care Team (Late st Contact Info) Description 10/11/2013 Refill [facility] [address] [place] [address] Shakir Ralph MD INACTIVE SINCE [...] Description 02/23/2024 9:45 AM CDT Ancillary Procedure [address] [phone] documented as of this encounter Visit Diagnoses Diagnosis Refill clinic medication management patient- Primary documented in this encounter Care Teams Paint Coating Machine Operator Relationship Specialty Start Date End Date Shakir Ralph MD PCP - General Family Practice 06/20/11 10/31/19 System, Provider Not In PCP - General Clinic 11/01/19 11/01/19 No Ref-Primary, Physician PCP - General 10/10/21 02/15/24 Shakir Wyatt MD [facility] [address], [place] [address] PCP - General 02/16/24 Shakir Ralph MD INACTIVE SINCE 09/25/2019 Assigned PCP 03/05/15 01/22/20 documented as of this encounter
--- OUTSIDE RECORDS SUMMARY | 2024-02-18 12:12 | XMS_ITS | Encounter Summary ---
Author Name Unknown Organization [facility] Address [address] [place] [address] Care Team Providers Care Engraver Lettering Name Role Phone Shakir Ralph MD Primary Care Provider UnaShakir Hernandez MD Unavailable Unavailable System, Provider Not In Primary Care Provider Un available No Ref-Primary, Physician Primary Care Provider Shakir Wyatt MD Primary Care Provider Reason for Visit * Reason Comments Medication Refill Encounter Details Date Type Department Care Team (Late st Contact Info) Description 10/23/2013 Refill [facility] [address] [place] [address] Shakir Ralph MD INACTIVE SINCE [...] 02/23/2024 9:45 AM CDT Ancillary Procedure [address] [phone] documented as of this encounter Visit Diagnoses Diagnosis Refill clinic medication management patient- Primary documented in this encounter Care Teams Engraver Lettering Relationship Specialty Start Date End Date Shakir Ralph MD PCP - General Family Practice 06/20/11 10/31/19 System, Provider Not In PCP - General Clinic 11/01/19 11/01/19 No Ref-Primary, Physician PCP - General 10/10/21 02/15/24 Shakir Wyatt MD [facility] [address], [place] [address] PCP - General 02/16/24 Shakir Ralph MD INACTIVE SINCE 09/25/2019 Assigned PCP 03/05/15 01/22/20 documented as of this encounter
--- OUTSIDE RECORDS SUMMARY | 2024-02-18 12:12 | XMS_ITS | Clinical Summary ---
Author Name Unknown Organization [facility] Address [place], [place] [address] Care Team Providers Care Gun Perforator Name Role Phone Sanjuana Weathers MD Unavailable Unavailable Sydnie Cisse MD Primary Care Provider + Allergies Active Allergy Reactions Criticality Noted Date Comments Sulfa (Sulfonamide Antibiotics) Diaphoresis,Edema Medium 11/24/2006 Medications Medication Sig Dispensed Refills Start Date End Date Status NASONEX 50 MCG/ACTUATION SPRAYIndications:Dy sfunction of eustachian tube inhale 2 sprays in each nostril by intranasal route twice daily until symptoms improve, then once daily one 3 07/13/2008 Active PREMARIN 0.9 MG TABIndications:Symp tomatic menopausal or female climacteric states take 1 tablet (0.9 mg) by oral route once daily 3 month 0 04/02/2009 Active estradioL (ESTRACE) 1 mg tablet Take 1 mg by mouth once daily. 06/21/2020 Active HYDROcodone-acetami nophen, 5-325 mg, (NORCO) per tabletIndications:F ibrous histiocytoma of skin,Dysplastic nevus syndrome with nevus of torso Take 1-2 tablets by mouth every 4 hours if needed for Pain Max acetaminophen dose: 4000 mg in 24 hrs. 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 Dysplastic nevus syndrome with nevus of torso Symptomatic menopausal or female climacteric sta jennifer 02/16/2007 Varicose veins of lower extremities with inflamm ation 12/09/2006 Tension headache 12/09/2006 Overview: chronic headaches Immunizations Name Administration Dates Next Due COVID-19 vaccine (Agrivi-Bio NTech 30mcg/0.3mL) 12YO+ BIVALENT PF, MDV 07/16/2022 Hepatitis A (Adult) 02/12/2008,08/20/2006 Hepatitis B (Adult) 08/20/2006,10/23/2005,2000 Hepatitis B, Unspecified 08/20/2006,10/23/2005,1 Influenza Virus, Unspecified 09/09/2015 Influenza, IIV3 (Age >=3 years) 08/06/2004,09/20,08/21/2001 Influenza, IIV4 07/16/2022 MMR 08/21/2001 Td (Age >=7 Years) 09/20/2003 Family History Medical History Relation Name Comments Good Health Brother Romel Allergies Daughter Blanca Good Health Daughter Blanca Stroke Father Ernst Heart Disease Mother Charlee Psychiatric illness Mother Charlee Stroke Mother Charlee Hyperlipidemia Paternal Grandfather Good Health Sister 1 Daphne Good Health Sister 2 Misty Psychiatric illness Sister 3 Sona Allergies Son Peter Good Health Son Peter Psychiatric illness Son Peter AUTISM - SEVERE Relation Name Status Comments Brother Romel Alive Daughter Blanca Alive Father Ernst Maternal Grandfather Maternal Grandmother Mother Charlee Alive Paternal Grandfather Paternal Grandmother Sister 1 Daphne Alive Sister 2 Misty Alive Sister 3 Sona Alive Son Peter Alive Social History Tobacco Use Types Packs/Day Years Used Date Smoking Tobacco: Never Smokeless Tobacco: Never Alcohol Use Standard Drinks/Week Comments Yes 0 (1 standard drink = 0.6 oz pur e alcohol) Social Connections Answer Date Recorded Frequency of Communication with Friends and Fami ly Not on file 01/08/2023 Sex and Gender Information Value Date Recorded Sex Assigned at Not on file Gender Identity Not on file Sexual Orientation Not on file Obstetrics History Last Filed Vital Signs Vital Sign Reading Time Taken Comments Blood Pressure 118/74 06/27/2020 9:00 AM CDT Pulse 60 06/27/2020 9:00 AM CDT Temperature 36.1 ??C (97 ??F) 06/27/2020 8:39 AM CDT Respiratory Rate 14 06/27/2020 8:45 AM CDT Oxygen Saturation 100% 06/27/2020 9:00 AM CDT Inhaled Oxygen Concentration - - Weight 73.6 kg (162 lb 4.1 oz) 06/27/2020 6:32 A M CDT Height 165.1 cm (5' 5) 06/27/2020 6:32 AM CDT Body Mass Index 27 06/27/2020 6:32 AM CDT Plan of Treatment Health Maintenance Due Date Last Done Comments Tdap 1977 Depression screening for age 12+ 1978 HIV for age 15-65 1981 BMI (ht and wt on same day) for age 18+ 1984 Hepatitis C screening for age 18-79 1984 Pap test for age 21-65 1987 Colonoscopy through age 75 2011 Mammogram for age 45-75 2011 02/12/20 08, 12/17/2006, 12/11/2006 Lipids for age 45-75 02/11/2013 02/12/2008, 09/20/2003, 09/20/2003 Tetanus booster 09/20/2013 09/20/2003 Zoster (shingles) series for age 50+ (1 of 2) 2016 COVID-19 vaccine series (2022-24 season) 2023 07/16/2022, 10/07/2021, 02/03/2021, Additional history exists Influenza for age 50-64 06/27/2024 07/16/20 22, 09/09/2015, 08/06/2004, Additional history exists Pneumococcal series for age 6-64 Aged Out No longer eligible based on patient's age to complete this topic Procedures Procedure Name Priority Date/Time Associated Diagnosis Comments LIPID PANEL Routine 02/12/2008 11:46 AM CDT Screening Lipid Disorders XR MAMMO SCREENING BILATERAL (IA) Routine 02/12/2008 10:41 AM CDT Screening Mammogram Other from Last 3 Months or Most Recently Relevant to Health Maintenance Results * LIPID PANEL (02/12/2008 11:46 AM CDT) CHOLESTEROL,TOTAL 197 110 - 199 mg/dL [facility] TRIGLYCERIDES 88 40 - 149 mg/dL [facility] HDL CHOLESTEROL 93 >40 mg/dL [facility] CHOL/HDL RATIO 2.12 <4.51 [facility] LDL CHOLESTEROL 86 <131 mg/dL [facility] PATIENT STATUS Fasting [facility] Blood specimen (specimen) BLOOD SPECIMEN / Unknown 02/12/2008 11:46 AM CDT 02/12/2008 11:39 AM CDT Sanjuana Weathers MD CHEMISTRY [facility] INTERNAL ZIP [phone] [address] * XR MAMMO SCREENING BILATERAL * (02/12/2008 10:41 AM CDT) MAMMOGRAM ACR 2 Benign Finding Anatomical Region Laterality Modality BREASTS, Breast Left, Breast Right Bilateral Mammography 02/12/2008 10:4 1 AM CDT Narrative 02/16/2008 7:06 AM CDT Benign findings noted on mammogram. ??For complete description of the mammographic examination, please reference scanned document within [facility]. ?? We are mailing a results letter to the patient. ACR 2 Benign Finding Procedure Note Fidel Fletcher MD - 02/16/2008 Benign findings noted on mammogram. For complete description of themammographic examination, please reference scanned document [facility]. We are mailing a results letter to the patient. ACR 2 Benign Finding Sanjuana Weathers MD MAMMO from Last 3 Months or Most Recently Relevant to Health Maintenance Advance Directives * Full Code (Latest Code Status on File) Date Activated Date Inactivated Comments 06/27/2020 6:23 AM 06/27/2020 11:56 AM Question Answer Comments Code Status Discussion: Not Discussed Care Teams Gun Perforator Relationship Specialty Start Date End Date Sydnie Cisse MD [address] [place] [id number] PCP - General Family Practice 06/15/20 Sanjuana Weathers MD 07/02/11
--- OUTSIDE RECORDS SUMMARY | 2024-02-18 12:12 | XMS_ITS | Encounter Summary ---
Author Name Unknown Organization [facility] Address [address] [place] [address] Care Team Providers Care Treating Plant Operator Name Role Phone Shakir Ralph MD Primary Care Provider UnaShakir Hernandez MD Unavailable Unavailable System, Provider Not In Primary Care Provider Un available No Ref-Primary, Physician Primary Care Provider Shkair Waytt MD Primary Care Provider Reason for Visit * Reason Comments Medication Refill Encounter Details Date Type Department Care Team (Late st Contact Info) Description 04/19/2014 Refill [facility] [address] [place] [phone] Shakir Ralph MD INACTIVE SINCE [...] encounter Miscellaneous Notes * Telephone Encounter - Patricia Bee CMA - 04/19/2014 1:21 PM CDT Last CPX 03/02/14 Last OV for med 07/02/13 Last lab for med 03/02/14 Last apt was 03/02/14 Patricia Bee Need DX for RX documented in this encounter Plan of Treatment Upcoming Encounters Date Type Department Care Team (Late st Contact Info) Description 02/23/2024 9:45 AM CDT Ancillary Procedure [facility] [id number] [place] [phone] documented as of this encounter Visit Diagnoses Diagnosis Refill clinic medication management patient- Primary documented in this encounter Care Teams Treating Plant Operator Relationship Specialty Start Date End Date Shakir Ralph MD PCP - General Family Practice 06/20/11 10/31/19 System, Provider Not In PCP - General Clinic 11/01/19 11/01/19 No Ref-Primary, Physician PCP - General 10/10/21 02/15/24 Shakir Wyatt MD [facility] [address] [place] [address] PCP - General 02/16/24 Shakir Ralph MD INACTIVE SINCE 09/25/2019 Assigned PCP 03/05/15 01/22/20 documented as of this encounter
--- OUTSIDE RECORDS SUMMARY | 2024-02-18 12:12 | XMS_ITS | Clinical Summary ---
Author Name Unknown Organization [facility] Address [address] [place] [address] Care Team Providers Care Revenue Cycle Manager Name Role Phone Shakir Ralph MD Primary Care Provider [phone] Source Comments You are receiving this document as you are listed as the primary care provider,follow-up provider, or the patient has been referred to you for consultation.This is in compliance with the Medicare andMedicaid EHR Incentive Program,which states Providers who transition their patient to another setting of careor provider of care or refers their patient to another provider of care shouldprovide summary care record for each transition of care or referral. [facility] Allergies Active Allergy Reactions Criticality Noted Date Comments Sulfa Antibiotics 01/22/2012 Medications Medication Sig Dispensed Refills Start Date End Date Status estrogens, conjugated (AKA PREMARIN) 0.9 MG tablet Take 0.9 mg by mouth daily (every 24 hours). 01/22/2012 Active mometasone-formotero l (AKA DULERA) 200-5 mcg/actuation inhaler Inhale 2 puffs 2 times daily. 01/22/2012 Active levalbuterol (AKA XOPENEX) 1.25 MG/0.5ML nebulizer solution Take 1 ampule as instructed as needed. Inhalation 01/22/2012 Active amphetamine-dextroam phetamine (ADDERALL) 20 MG tablet Take 40 mg by mouth daily (every 24 hours). 05/06/2012 Active Active Problems Problem Noted Date Diagnosed Date Stress fracture of tibia or fibula 03/25/2012 Peroneal tendon injury 03/12/2012 Calcaneal fracture 03/12/2012 Resolved Problems Problem Noted Date Diagnosed Date Resolved Date Peroneal tendon injury 03/12/201203/12 Family History Medical History Relation Name Comments Heart Disease Mother Anesthesia Reaction Negative Family History Broken Bones Negative Family History Cancer Negative Family History Clotting Disorder Negative Family History Diabetes Negative Family History Osteoporosis Negative Family History Rheumatologic Disease Negative Family History Relation Name Status Comments Mother Social History Tobacco Use Types Packs/Day Years Used Date Smoking Tobacco: Never Smokeless Tobacco: Never Alcohol Use Standard Drinks/Week Comments Yes 0 (1 standard drink = 0.6 oz pur e alcohol) 2 drinks per month Sex and Gender Information Value Date Recorded Sex Assigned at Not on file Gender Identity Not on file Sexual Orientation Not on file Last Filed Vital Signs Vital Sign Reading Time Taken Comments Blood Pressure 124/75 11/08/2013 9:13 AM LEARNING DISABILITIES SPECIALIST Pulse 72 10/14/2012 10:00 PM LEARNING DISABILITIES SPECIALIST Temperature 36.7 ??C (98.1 ??F) 10/14/2012 5:34 PM CS T Respiratory Rate 18 10/14/2012 10:00 PM LEARNING DISABILITIES SPECIALIST Oxygen Saturation 99% 10/14/2012 10:00 PM LEARNING DISABILITIES SPECIALIST Inhaled Oxygen Concentration - - Weight 69.4 kg (153 lb) 11/24/2019 11:12 AM LEARNING DISABILITIES SPECIALIST Height 165.1 cm (5' 5) 11/24/2019 11:12 AM LEARNING DISABILITIES SPECIALIST Body Mass Index 25.46 11/24/2019 11:12 AM LEARNING DISABILITIES SPECIALIST Plan of Treatment Health Maintenance Due Date Last Done Comments Cervical Cancer Screening Due 1966 Colon Cancer Screening Plan Due 1966 Hep C Screening (Preventive Services) 1966 Mammogram 1966 HIV Screening (Preventive Services) 1982 Adult Preventive Visit 1984 HepB (1) 1985 Cholesterol 2011 COVID-19 Vaccine ( season) 2023 01/13/2021 Influenza (#1) 2023 08/21/2020, 11/2018, 08/21/2018, Additional history exists DTaP/Tdap/Td (2 - Tdap) 12/30/2024 12/30/2014, 09/20 HepA Aged Out 02/12/2008, 08/20/2006 No lo nger eligible based on patient's age to complete this topic Pneumococcal Aged Out 08/21/2018 No longer eligi ble based on patient's age to complete this topic Zoster/Shingles Completed 01/10/2020, 10/29/2019 Hib Aged Out No longer eligi ble based on patient's age to complete this topic IPV (Polio) Aged Out No longer eligi ble based on patient's age to complete this topic MCV4 Aged Out No longer eligi ble based on patient's age to complete this topic Care Teams Revenue Cycle Manager Relationship Specialty Start Date End Date Shakir Ralph MD [facility] [place] [id number] [place] [address] PCP - General 09/10/12
--- OUTSIDE RECORDS SUMMARY | 2024-02-18 12:12 | XMS_ITS | Encounter Summary ---
Author Name Unknown Organization [facility] Address [address] [place] [address] Care Team Providers Care Imcu Specialist Name Role Phone Shakir Ralph MD Primary Care Provider UnaShakir Hernandez MD Unavailable Unavailable System, Provider Not In Primary Care Provider Un available No Ref-Primary, Physician Primary Care Provider Shakir Wyatt MD Primary Care Provider Encounter Details Date Type Department Care Team (Late Contact Info) Description 07/06/2013 [facility] Medical Advice [facility] [address] [place] [phone] Anni Rubio Social History Tobacco [...] Description 02/23/2024 9:45 AM CDT Ancillary Procedure [facility] [address] [place] [phone] documented as of this encounter Visit Diagnoses Not on filedocumented in this encounter Care Teams Imcu Specialist Relationship Specialty Start Date End Date Shakir Ralph MD PCP - General Family Practice 06/20/11 10/31/19 System, Provider Not In PCP - General Clinic 11/01/19 11/01/19 No Ref-Primary, Physician PCP - General 10/10/21 02/15/24 Shakir Wyatt MD [facility] [address] [place] [address] PCP - General 02/16/24 Shakir Ralph MD INACTIVE SINCE 09/25/2019 Assigned PCP 03/05/15 01/22/20 documented as of this encounter
--- OUTSIDE RECORDS SUMMARY | 2024-02-18 12:12 | XMS_ITS | Encounter Summary ---
Author Name Unknown Organization [facility] Address [address] [place] [address] Care Team Providers Care Male Impersonator Name Role Phone Shakir Ralph MD Primary Care Provider UnaShakir Hernandez MD Unavailable Unavailable System, Provider Not In Primary Care Provider Un available No Ref-Primary, Physician Primary Care Provider Shakir Wyatt MD Primary Care Provider Reason for Visit * Reason Comments Medication Refill Encounter Details Date Type Department Care Team (Late st Contact Info) Description 08/09/2014 Refill [facility] [address] [place] [phone] Shakir Ralph MD INACTIVE SINCE [...] 02/23/2024 9:45 AM CDT Ancillary Procedure [address] [phone] documented as of this encounter Visit Diagnoses Diagnosis Refill clinic medication management patient- Primary documented in this encounter Care Teams Male Impersonator Relationship Specialty Start Date End Date Shakir Ralph MD PCP - General Family Practice 06/20/11 10/31/19 System, Provider Not In PCP - General Clinic 11/01/19 11/01/19 No Ref-Primary, Physician PCP - General 10/10/21 02/15/24 Shakir Wyatt MD [facility] [address] [address] PCP - General 02/16/24 Shakir Ralph MD INACTIVE SINCE 09/25/2019 Assigned PCP 03/05/15 01/22/20 documented as of this encounter
== END 2024-02-18 12:07 | disposition home or self-care (01) ==
PROVIDERS: PCP Family Medicine; Visit Provider Family Medicine
DX: M25.50 Pain in unspecified joint (principal); R63.5 Abnormal weight gain; R53.83 Other fatigue
CPT/HCPCS: 80053; 84443; 85025; 86039; 86140; 86431

== ENCOUNTER 2024-11-01 12:53 | Outpatient (CLI) | payer BC, SELFPAY | END 2024-11-01 12:54 | disposition home or self-care (01) | LOC: NFLDREF 11-02 02:42 | PROVIDERS: PCP Family Medicine; Referring Provider Family Medicine; Visit Provider Nurse Practitioner Family | DX: N39.0 Urinary tract infection, site not specified (principal); B37.31 Acute candidiasis of vulva and vagina | CPT/HCPCS: 81001; 87086 ==

== ENCOUNTER 2024-11-09 09:26 | Outpatient (CLI) | payer BC, SELFPAY ==
[2024-11-09 13:29] LABS: Yeast No Yeast Seen (None Seen)
[2024-11-09 13:30] LABS: Clue Cells No Clue Cells Seen (None Seen); Trichomonas No Trichomonas Seen (None Seen)
== END 2024-11-09 09:27 | disposition home or self-care (01) ==
LOC: FBOREF 10:16
PROVIDERS: PCP Family Medicine; Visit Provider Family Medicine
DX: R10.2 Pelvic and perineal pain (principal)
CPT/HCPCS: 87210

== ENCOUNTER 2025-05-13 15:00 | Outpatient (CLI) | payer BC, SELFPAY ==
--- NOTE | 2025-05-13 15:20 | CRLHL7_ITS ---
For Patients: As a result of the Century Cures Act, medical imaging exams and procedure reports are released immediately into your electronic medical record. You may view this report before your referring provider. If you have questions, please contact your health care provider. BILATERAL DIGITAL SCREENING MAMMOGRAM WITH COMPUTER-AIDED DETECTION AND TOMOSYNTHESIS CLINICAL HISTORY: : Routine screening exam. COMPARISON: Mammogram 02/23/2024, 01/27/2023 and 10/10/2021 TECHNIQUE: Digital mammogram in CC and MLO projections including computer-aided detection (CAD) and tomosynthesis. BREAST COMPOSITION: There are scattered areas of fibroglandular density. FINDINGS: RIGHT Breast: There is a focal asymmetry in the lower outer quadrant, middle depth. LEFT Breast: No suspicious findings. IMPRESSION: RIGHT breast focal asymmetry. RECOMMENDATIONS: Additional mammographic views of the RIGHT breast including 90 degree lateral, spot compression CC and MLO. RIGHT breast ultrasound may also be required. A member of the breast care team will contact the patient to arrange for this additional study. BI-RADS Category 0: Incomplete: Need Additional Imaging Evaluation Dictated by Lissa Caba MD @ 05/19/2025 8:46:55 AM Dictated by: Lissa Caba MD @ 05/19/2025 08:47:08 (Electronically Signed)
== END 2025-05-13 15:01 | disposition home or self-care (01) ==
PROVIDERS: PCP Family Medicine; Visit Provider Family Medicine
DX: Z12.31 Encounter for screening mammogram for malignant neoplasm of breast (principal); N63.10 Unspecified lump in the right breast, unspecified quadrant
CPT/HCPCS: 77063; 77067

== ENCOUNTER 2025-06-15 14:02 | Outpatient (CLI) | payer BC, SELFPAY | END 2025-06-15 14:03 | disposition home or self-care (01) | LOC: NFLDREF 06-20 19:06 | PROVIDERS: PCP Family Medicine; Referring Provider Family Medicine; Visit Provider Physician Assistant Surgical | DX: N39.0 Urinary tract infection, site not specified (principal) | CPT/HCPCS: 87086 ==

== ENCOUNTER 2025-06-20 09:58 | Outpatient (CLI) | payer BC, SELFPAY | END 2025-06-20 09:59 | disposition home or self-care (01) | PROVIDERS: PCP Family Medicine; Visit Provider Family Medicine | DX: Z13.6 Encounter for screening for cardiovascular disorders (principal); Z13.1 Encounter for screening for diabetes mellitus | CPT/HCPCS: 80061; 82947 ==

== ENCOUNTER 2025-06-20 10:40 | Outpatient (CLI) | payer BC, SELFPAY ==
--- NOTE | 2025-06-20 10:45 | CRLHL7_ITS ---
For Patients: As a result of the Cures Act, medical imaging exams and procedure reports are released immediately into your electronic medical record. You may view this report before your referring provider. If you have questions, please contact your health care provider. RIGHT DIAGNOSTIC MAMMOGRAM WITH COMPUTER-AIDED DETECTION AND TOMOSYNTHESIS RIGHT BREAST ULTRASOUND CLINICAL HISTORY: RIGHT breast mass/asymmetry. COMPARISON: 05/13/2025, 02/23/2024, 01/27/2023. TECHNIQUE: Digital RIGHT mammogram in three projections. Computer-aided detection and tomosynthesis were used in this interpretation. Real-time ultrasound imaging of RIGHT breast with imaging documentation. Scanning was performed by both the technologist and the radiologist. BREAST COMPOSITION: The breasts are heterogeneously dense, which may obscure small masses. FINDINGS: Additional mammogram images of the RIGHT breast submitted. Decreased conspicuity of the previously noted nodular density. Benign calcifications are present. No architectural distortion. Targeted RIGHT breast ultrasound performed in the lower outer quadrant. At 7-8 o`clock 5 cm from the nipple no suspicious findings are present. Normal dense fibroglandular tissue noted. IMPRESSION: No evidence of malignancy. RECOMMENDATIONS: Routine screening mammography. A lay language report of this examination will be provided to the patient. BI-RADS Category 2: Benign Dictated by Shakir Fagan MD @ 06/20/2025 12:06:56 PM /sp SP/Dictated by: Shakir Fagan MD @ 06/20/2025 12:06:00 PM (Electronically Signed)
--- NOTE | 2025-06-20 11:15 | CRLHL7_ITS ---
For Patients: As a result of the Century Cures Act, medical imaging exams and procedure reports are released immediately into your electronic medical record. You may view this report before your referring provider. If you have questions, please contact your health care provider. PLEASE SEE RIGHT BREAST DIAGNOSTIC MAMMOGRAM PERFORMED SAME DAY. CRL:sp SP/Dictated by: Shakir Fagan MD @ 06/20/2025 12:07:00 PM (Electronically Signed)
== END 2025-06-20 10:41 | disposition home or self-care (01) ==
LOC: MAMMO 10:40
PROVIDERS: PCP Family Medicine; Visit Provider Family Medicine
DX: N63.10 Unspecified lump in the right breast, unspecified quadrant (principal); R92.8 Other abnormal and inconclusive findings on diagnostic imaging of breast
CPT/HCPCS: 76642; 77065; G0279

== ENCOUNTER 2025-07-01 09:35 | Outpatient (CLI) | payer BC, SELFPAY | END 2025-07-01 09:36 | disposition home or self-care (01) | LOC: RAD 09:35 | PROVIDERS: PCP Family Medicine; Visit Provider Family Medicine | DX: G93.32 Myalgic encephalomyelitis/chronic fatigue syndrome (principal); U09.9 Post COVID-19 condition, unspecified | CPT/HCPCS: 93306 ==

== ENCOUNTER 2025-08-23 09:45 | Outpatient (CLI) | payer BC, SELFPAY ==
--- NOTE | 2025-08-23 10:15 | CRLHL7_ITS ---
For Patients: As a result of the Century Cures Act, medical imaging exams and procedure reports are released immediately into your electronic medical record. You may view this report before your referring provider. If you have questions, please contact your health care provider. INDICATION: Dizziness and giddiness. TECHNIQUE: Multisequence multiplanar MRI of the brain without the use of intravenous contrast. COMPARISON: None available. FINDINGS: No evidence of acute ischemia. Few scattered foci of T2 prolongation within white matter of the frontal lobes. Punctate focus of susceptibility artifact in the left frontal lobe. The ventricles are normal in size. Flow voids of the larger intracranial arteries are preserved. Normal calvarial bone marrow signal intensity. Unremarkable orbits. Mild mucosal thickening within the ethmoid sinuses and maxillary alveolar recesses. IMPRESSION: 1. No acute intracranial abnormality. 2. Few scattered foci of T2 prolongation within the white matter of the frontal lobes, nonspecific, but commonly reflecting mild chronic small vessel ischemic changes or sequela of chronic migraine headaches. 3. Punctate focus of susceptibility artifact in the left frontal lobe consistent with sequela of prior microhemorrhage. Dictated by Juan F Angulo MD @ 08/23/2025 4:00:12 PM (Electronically Signed)
== END 2025-08-23 09:46 | disposition home or self-care (01) ==
LOC: MRI 09:45
PROVIDERS: PCP Family Medicine; Visit Provider Family Medicine
DX: R42 Dizziness and giddiness (principal)
CPT/HCPCS: 70551

== ENCOUNTER 2025-09-07 12:38 | Outpatient (CLI) | payer BC, SELFPAY ==
--- NOTE | 2025-09-07 13:00 | CRLHL7_ITS ---
For Patients: As a result of the Cures Act, medical imaging exams and procedure reports are released immediately into your electronic medical record. You may view this report before your referring provider. If you have questions, please contact your health care provider. Indication: Headache. Technique: Routine sinus protocol. Comparison: None. Findings: Paranasal sinuses: The paranasal sinuses are well developed. No air-fluid levels. Opacification of 1 left mid ethmoid air cell measuring 8 millimeters which may represent a mucous retention cyst or polyp. The paranasal sinuses are otherwise clear. OMU and SER: Patent. Nasal cavity: No nasal mass lesions or obstruction. Deviation of the nasal septum to the right with right septal spur. Bones: No facial fractures, deformities or bony lesions. Orbits: The globes are intact. No intra orbital abnormalities. Infratemporal fossa: Normal. Soft tissues: Normal. Intracranial contents: Normal visualized intracranial contents. Impression: 1. Opacification of 1 left mid ethmoid air cell measuring 8 millimeters which may represent a mucous retention cyst or polyp. The paranasal sinuses are otherwise clear. 2. No sinus or nails obstruction. 3. No acute intracranial abnormalities. Please note that all CT scans at this facility use dose modulation, iterative reconstruction, and/or weight-based dosing when appropriate to reduce radiation dose to as low as reasonably achievable. Dictated by Faisal Blancas MD @ 09/07/2025 2:34:13 PM Signed by: Faisal Blancas @ 09/07/2025 2:34:13 PM (Electronic Signature) SP/Dictated by: Faisal Blancas MD @ 09/07/2025 2:34:00 PM (Electronically Signed)
== END 2025-09-07 12:39 | disposition home or self-care (01) ==
LOC: CT 12:38
PROVIDERS: PCP Family Medicine; Visit Provider Physician Assistant
DX: R51.9 Headache, unspecified (principal); R09.81 Nasal congestion
CPT/HCPCS: 70486

== ENCOUNTER 2025-10-14 08:12 | Outpatient (CLI) | payer BC, SELFPAY | END 2025-10-14 08:13 | disposition home or self-care (01) | PROVIDERS: PCP Family Medicine; Visit Provider Family Medicine | DX: Z01.818 Encounter for other preprocedural examination (principal) | CPT/HCPCS: 80048; 85025 ==